=== PATIENT | male | born 1970 | race Caucasian/White ===

== ENCOUNTER → 2018-12-05 | Day surgery (SDC) | payer OTHER ==
[~2018-12-05] MED LIST: EPHEDRINE SULFATE INJ 50 MG/10 ML SYR ONE; FENTANYL CITRATE/PF 100MCG/2 ML INJ ONE; HYOSCYAMINE 0.125 MG TAB ONE; LOSARTAN POTAS100 MG PO; MIDAZOLAM HCL 2 MG/2 ML VIAL ONE; PROPOFOL IV EMULSION 10 MG/ML 50 ML VIAL ONE
--- NOTE | 2018-12-05 07:11 | NUR ---
SPIRITUAL CARE - Pre-Surgery Assessment: Pt in bed. Pt's at bedside. Pt reported supportive attention from family and friends. Intervention: I provided pastoral presence, hospitality, and sympathetic listening. I acquainted pt with availability of insole presser while hospitalized. Outcome: Pt expressed appreciation for visit. No need for follow up indicated at this time. [facility] Department O: [phone] Pager: [phone] ([phone] number calling from)
[2018-12-05 09:35] VITALS: BP 128/86
--- NOTE | 2018-12-05 10:30 | Operative Report ---
DATE OF PROCEDURE: 12/05/2018 SURGEON: Vin Davis MD PROCEDURE: Colonoscopy with polypectomy and biopsies. INDICATIONS FOR COLONOSCOPY: Surveillance colonoscopy, personal history of colon polyps. MEDICATIONS: The patient was done under MAC, please see anesthesiologist's note. PROCEDURE IN DETAIL: With the patient in left lateral decubitus position, flexible fiberoptic Olympus colonoscope was inserted into the rectum with ease and advanced all the way to the cecum. Mucosa overlying the cecum appeared to be within normal limits. One polyp was removed from the proximal ascending colon with a cold biopsy forceps. The rest of the ascending appeared to be within normal limits. One polyp was hot biopsied from the distal transverse colon. Diverticular disease was noted to involve the distal descending and the sigmoid colon. A minute ulcer was noted in the proximal rectum that was biopsied. One polyp was removed per hot biopsy forceps in the distal rectum. The scope was then retroflexed into the distal rectum and small internal hemorrhoids were noted, none of which was actively bleeding. The scope was then straightened out, it was subsequently withdrawn. The patient tolerated procedure well. IMPRESSION: 1. Ascending colon polyp, removed per cold biopsy forceps. 2. Transverse colon polyp, hot biopsied and site was hemoclipped. 3. Diverticulosis. 4. Rectal ulcer, biopsied. 5. Rectal polyp, hot biopsied. 6. Internal hemorrhoids, none actively bleeding. PLAN: Follow up histology. Initiate high-fiber, low-fat diet. Initiate high-fiber supplement. The patient might benefit from a followup colonoscopy in 5 years. MD ENE Belcher/KELLY /[id number] cc: Sony Verma MD
== END | disposition home or self-care (01) ==
LOC: OR 05:42
PROVIDERS: ATTEND Internal Medicine Gastroenterology
DX: Z12.11 Encounter for screening for malignant neoplasm of colon (principal); K63.5 Polyp of colon; K62.1 Rectal polyp; K57.30 Diverticulosis of large intestine without perforation or abscess without bleeding; K62.6 Ulcer of anus and rectum; K64.8 Other hemorrhoids; I10 Essential (primary) hypertension; R74.8 Abnormal levels of other serum enzymes; Z01.810 Encounter for preprocedural cardiovascular examination; Z68.32 Body mass index [BMI] 32.0-32.9, adult
CPT/HCPCS: 45380; 45384; 93005; J2250; J2704; 45378; J3010

== ENCOUNTER → 2024-11-17 | Day surgery (SDC) | payer OTHER ==
[~2024-11-17] MED LIST changes: +AMLODIPINE BESYL5 MG PO; -EPHEDRINE SULFATE INJ 50 MG/10 ML SYR ONE; -FENTANYL CITRATE/PF 100MCG/2 ML INJ ONE; -HYOSCYAMINE 0.125 MG TAB ONE; +LIDOCAINE HCL 2% LOCAL INJ 5 ML SDV VIAL INJ ONE; -MIDAZOLAM HCL 2 MG/2 ML VIAL ONE; +PROPOFOL IV EMULSION 10 MG/ML 20 ML VIAL ONE; -PROPOFOL IV EMULSION 10 MG/ML 50 ML VIAL ONE; +PROPOFOL IV EMULSION 50 ML IV ONE; +ROSUVASTATIN CAL5 MG PO
[2024-11-17] MEDS: LACTATED RINGER'S 1,000 ML ONE (09:41)
[2024-11-17 10:28] VITALS: TEMP 97.8
[2024-11-17 10:50] VITALS: BP 124/90; PULSE 76; RESP 16; O2SAT 99
== END | disposition home or self-care (01) ==
LOC: OR 07:53
PROVIDERS: ATTEND Internal Medicine Gastroenterology
DX: Z12.11 Encounter for screening for malignant neoplasm of colon (principal); D12.4 Benign neoplasm of descending colon; K57.30 Diverticulosis of large intestine without perforation or abscess without bleeding; K64.8 Other hemorrhoids; I10 Essential (primary) hypertension; Z01.810 Encounter for preprocedural cardiovascular examination
CPT/HCPCS: 45378; 45380; 45385; 93005; J2003